=== PATIENT | female | born 2000 | race Caucasian/White ===

== ENCOUNTER 2023-02-03 06:00 | Inpatient (IN) | payer OTHER ==
[2023-02-03] MEDS ORDERED: TERBUTALINE 1 MG/ML VIAL SQ PRN (06:18)
[2023-02-03] MEDS ORDERED: TRANEXAMIC ACID IN NACL,ISO-OS 1,000 MG in EMPTY BAG 1 BAG IV PRN (06:18)
[2023-02-03] MEDS ORDERED: OXYTOCIN 10 UNIT/ML 1 ML VIAL IM PRN (06:18)
[2023-02-03] MEDS ORDERED: LIDOCAINE 0.5% (PF) 5 MG/ML (50 ML SDV) SQ PRN (06:18)
[2023-02-03] MEDS ORDERED: METHYLERGONOVINE 0.2 MG/ML 1 ML AMP IM PRN (06:18)
[2023-02-03] MEDS ORDERED: miSOPROStoL 200 MCG TAB PO PRN (06:18)
[2023-02-03] MEDS ORDERED: CARBOPROST TROMETHAMINE 250 MCG/ML 1 ML AMP IM PRN (06:18)
[2023-02-03] MEDS: LACTATED RINGERS 1,000 ML IV SCH ×4 (06:30→16:13)
[2023-02-03] MEDS: OXYTOCIN 30 UNITS/500 ML NS 30 UNIT in SALINE 1 500ML.BAG IV SCH (06:34)
[2023-02-03 07:55] LABS: Basophils # (A) 0.1 k/uL (0-0.2); Basophils % (A) 1 %; Eosinophils # (A) 0.3 k/uL (0-0.7); Eosinophils % (A) 2 %; HCT 32.8 % (34.0-46.0); HGB 10.8 gm/dL (11.4-16.0); Lymphocytes # (A) 2.8 k/uL (1.0-4.8); Lymphocytes % (A) 17 %; MCH 26.7 pg (25.0-35.0); MCHC 32.9 g/dL (31.0-37.0); MCV 81.2 fL (80.0-100.0); Mean Platelet Volume 8.8; Monocytes % (A) 6 %; Neutrophils # (A) 12.1 k/uL (1.3-7.7); Neutrophils % (A) 73 %; Platelet Count 276 k/uL (150-450); RBC 4.04 m/uL (3.80-5.40); RDW 15.5 % (11.5-15.5); WBC 16.6 k/uL (3.8-10.6)
--- NOTE | 2023-02-03 11:17 | P.HPOB ---
History of Present Illness H&P Date: 02/03/23 Chief Complaint: Elective Induction of Labor Ms. Sykes is a 22 year old at 40 weeks and 3 days with EDC of 01/31/2023 by LMP c/w a 15 week US presenting to labor and delivery for induction of labor for post-dates. Her has been complicated by anemia of , treated with oral ferrous sulfate. Growth ultrasound at 32 weeks estimated the growth to be in the 50%ile with normal fluid and fetus was noted to be in cephalic presentation. Maternal serologies: blood type B/weak D, antibody negative, rubella immune, VDRL non-reactive, HBsAg negative, HIV negative, 1 hour GTT 123, GBS negative. Past Medical History Past Medical History: No Reported History History of Any Multi-Drug Resistant Organisms: None Reported Past Surgical History: Tonsillectomy Past Anesthesia/Blood Transfusion Reactions: No Reported Reaction Past Psychological History: No Psychological Hx Reported Smoking Status: Former smoker Past Alcohol Use History: None Reported Past Drug Use History: None Reported Additional Drug Use History / Comment(s): marijuana and vaping prior to Medications and Allergies Home Medications Medication Instructions Recorded Confirmed Type Vit No.179/Iron/Folic 1 each PO DAILY 02/03/23 02/03/23 History [ Tablet] Allergies Allergy/AdvReac Type Severity Reaction Status Date / Time No Known Allergies Allergy Verified 02/03/23 06:15 Exam Vital Signs Temp Pulse Resp BP Pulse Ox 02/03/23 06:20 97.7 F 102 H 18 126/81 98 Intake and Output 02/02/23 02/03/23 02/03/23 22:59 06:59 14:59 Other: Weight 83.007 kg Focused physical exam is performed. This is a healthy-appearing in no apparent distress. She is warm and well perfused. She has non-labored breathing and is conversing without difficulty. Abdomen is soft, non-tender, and gravid. Fetus is in cephalic presentaiton by Haris's maneuvers. Cervical exam is 2cm dilation/80% effacement/-3 station. AROM is undertaken at this time with a moderate amount of clear fluid noted. Extremities are non-edematous and non-te nder. heart tones are Category I and the patient is graphing regular contractions with 10 units of pitocin. Results Result Diagrams: 02/03/23 07:30 Abnormal Lab Results - Last 24 Hours (Table) 02/03/23 Range/Units 07:30 WBC 16.6 H (3.8-10.6) k/uL Hgb 10.8 L (11.4-16.0) gm/dL Hct 32.8 L (34.0-46.0) % Neutrophils # 12.1 H (1.3-7.7) k/uL Assessment and Plan Assessment: 22 year old at 40 weeks and 3 days here for induction of labor for post-dates Plan: Admit, NPO, mIVF, pitocin per protocol, epidural prn, continuous electronic monitoring, close monitoring of patient. Time with Patient: Less than 30 (10 minutes)
[2023-02-03] MEDS ORDERED: ROPIVACAINE 5 MG/ML 20 ML AMPULE ONE (14:17)
[2023-02-03] MEDS ORDERED: SODIUM CHLORIDE 0.9% 100 ML BAG ONE (14:17)
[2023-02-03] MEDS ORDERED: fentaNYL (PF) 50 MCG/ML 5 ML AMP ONE (14:17)
--- NOTE | 2023-02-03 23:23 | P.PROBDLV ---
Vaginal Delivery Note - . Vaginal Delivery Note: DATE OF SERVICE: 02/03/2023 PROCEDURE: Normal Vaginal Delivery ATTENDING: Dr. Shawnee Gary MD ESTIMATED BLOOD LOSS: 200 mL FINDINGS: VMI, Apgars 8/9, 7#14oz PROCEDURE: Patient was a 22 y/o at 40 weeks and 3 days who presented to labor and delivery for induction of labor. Oxtocin was started and AROM was undertaken for clear fluid. The patient received epidural anesthesia per her request. The patient progressed to complete dilation. She pushed the head effectively. Head delivered without difficulty followed by shoulders and body over intact perineum. Infant placed on maternal abdomen and bulb suctioned. Cord was clamped and cut after a 30 second delay. Placenta delivered whole with gentle cord traction. Oxytocin was started to facilitate uterine tone. Uterine fundus firm and bleeding minimal upon fundal massage. Perineal inspection revealed a second degree laceration repaired with 3-0 Vicryl in the usual fashion. Patient stable .
[2023-02-03] MEDS ORDERED: diphenhydrAMINE 50 MG/ML 1 ML VIAL IVP PRN ×2 (23:24)
[2023-02-03] MEDS ORDERED: HYDROCORTISONE 2.5% RECTAL CREAM 30 GM TUBE RECTAL PRN (23:24)
[2023-02-03] MEDS ORDERED: SIMETHICONE 80 MG CHEWABLE PO PRN (23:24)
[2023-02-03] MEDS ORDERED: diphenhydrAMINE 50 MG CAP PO PRN (23:24)
[2023-02-03] MEDS ORDERED: BENZOCAINE/MENTHOL SPRAY 1 GM/SPRAY AEROSOL TOPICAL PRN (23:24)
[2023-02-03] MEDS ORDERED: LANOLIN CREAM 5 GM TUBE TOPICAL PRN (23:24)
[2023-02-03] MEDS ORDERED: diphenhydrAMINE 25 MG CAP PO PRN (23:24)
[2023-02-03] MEDS ORDERED: ZOLPIDEM 5 MG TAB PO PRN (23:24)
[2023-02-03] MEDS ORDERED: Rhogam IMMUNE GLOBULIN 1,500 UNIT/1 ML IM ONE (23:24)
[2023-02-03] MEDS ORDERED: OXYTOCIN 30 UNITS/500 ML NS 30 UNIT in SALINE 1 500ML.BAG IV SCH (23:30)
[2023-02-04] MEDS: OXYTOCIN 30 UNITS/500 ML NS 30 UNIT in SALINE 1 500ML.BAG IV SCH (00:04)
[2023-02-04] MEDS: LACTATED RINGERS 1,000 ML IV SCH (00:05)
[2023-02-04] MEDS: IBUPROFEN 600 MG TAB PO PRN ×3 (01:48→23:35)
[2023-02-04 07:08] LABS: Basophils % (A) 0 %; Eosinophils # (A) 0.1 k/uL (0-0.7); Eosinophils % (A) 1 %; HCT 27.9 % (34.0-46.0); HGB 9.4 gm/dL (11.4-16.0); Lymphocytes # (A) 1.7 k/uL (1.0-4.8); Lymphocytes % (A) 10 %; MCH 27.4 pg (25.0-35.0); MCHC 33.8 g/dL (31.0-37.0); Monocytes # (A) 1.3 k/uL (0-1.0); Monocytes % (A) 7 %; Neutrophils # (A) 14.6 k/uL (1.3-7.7); Neutrophils % (A) 80 %; Platelet Count 232 k/uL (150-450); RBC 3.44 m/uL (3.80-5.40); RDW 15.8 % (11.5-15.5); WBC 18.2 k/uL (3.8-10.6)
[2023-02-04] MEDS: SENNOSIDES-DOCUSATE SODIUM 1 EACH TAB PO SCH ×2 (08:04→19:49)
--- NOTE | 2023-02-04 08:54 | P.DS ---
Providers Date of admission: 02/03/23 06:00 Expected date of discharge: 02/04/23 Attending physician: Shawnee Gary MD Primary care physician: Stated None Hospital Course: This is a 22-year-old now 1 para 1001 day #1 after an uncomplicated vaginal delivery who desires discharge home today.The patient is doing well this morning and had no acute events overnight. She has no complaints this morning. She reports minimal lochia, passing flatus, voiding without difficulty, ambulating, and eating/drinking without nausea or vomiting. She is her without difficulty. doing well at bedside, s/p circumcision. She denies chest pain, shortness of breathing, fevers, or chills overnight. She denies pain or swelling in the legs. restrictions are reviewed with the patient including pelvic rest for 6 weeks. The patient is encouraged to call the office if she experiences any heavy bleeding, foul- smelling discharge, breast complaints, or any if she has any other concerns. She will follow up in the office in 6 weeks for exam. All questions are answered. Assessment: 22 year old now day #1 s/p uncomplicated vaginal delivery Patient Condition at Discharge: Good Plan - Discharge Summary New Discharge Prescriptions: New Ibuprofen [Motrin] 600 mg PO Q6HR PRN #30 tab PRN Reason: Mild Pain (Scale 1 To 3) Acetaminophen Tab [Tylenol] 650 mg PO Q6H PRN #30 tab PRN Reason: Mild Pain (Scale 1 To 3) No Action Vit No.179/Iron/Folic [ Tablet] 1 each PO DAILY Discharge Medication List Vit No.179/Iron/Folic [ Tablet] 1 each PO DAILY 02/03/23 [History] Acetaminophen Tab [Tylenol] 650 mg PO Q6H PRN #30 tab 02/04/23 [Rx] Ibuprofen [Motrin] 600 mg PO Q6HR PRN #30 tab 02/04/23 [Rx] Follow up Appointment(s)/Referral(s): Shawnee Gary MD [STAFF PHYSICIAN] - 6 Weeks Patient Instructions/Handouts: How to Increase Your Milk Supply (DC), How to Tell if Your Baby is Getting Enough Breast Milk (DC), Depression (DC), Perineal Care (DC), Bleeding (DC) Activity/Diet/Wound Care/Special Instructions: Pelvic rest for 6 weeks Discharge Disposition: HOME SELF-CARE
[2023-02-04] MEDS: ACETAMINOPHEN TAB 325 MG TAB PO PRN ×2 (12:36→19:49)
[2023-02-05 00:17] VITALS: RESP 16
[2023-02-05 07:59] VITALS: BP 118/80; PULSE 84; TEMP 98.6
[2023-02-05] MEDS: SENNOSIDES-DOCUSATE SODIUM 1 EACH TAB PO SCH (07:59)
== END 2023-02-05 13:29 | disposition home or self-care (01) | DRG 560 ==
LOC: 4FBP 06:00
PROVIDERS: ADMIT Obstetrics & Gynecology; ATTEND Obstetrics & Gynecology
PROC: 0KQM0ZZ Repair Perineum Muscle, Open Approach (ICD-10-PCS; principal; 2023-02-03)
PROC: 10E0XZZ Delivery of Products of Conception, External Approach (ICD-10-PCS; principal; 2023-02-03)
PROC: 3E033VJ Introduction of Other Hormone into Peripheral Vein, Percutaneous Approach (ICD-10-PCS; 2023-02-03)
PROC: 10907ZC Drainage of Amniotic Fluid, Therapeutic from Products of Conception, Via Natural or Artificial Opening (ICD-10-PCS; 2023-02-03)
DX: O48.0 Post-term pregnancy (principal); O99.02 Anemia complicating childbirth; Z37.0 Single live birth; O70.1 Second degree perineal laceration during delivery; Z3A.40 40 weeks gestation of pregnancy; Z87.891 Personal history of nicotine dependence
CPT/HCPCS: 85025; 86850; 86900; 86901